=== PATIENT | female | born 1995 | race Caucasian/White ===

== ENCOUNTER 2017-06-11 16:29 | Emergency (ER) | payer BC ==
[~2017-06-11] VITALS: Ht 180.3 cm; Wt 74.0 kg
[2017-06-11 17:14] VITALS: BP 123/67; Ht 180.3 cm; Wt 74.0 kg
== END 2017-06-11 20:01 | disposition left against medical advice (07) ==
LOC: ED 16:29
DX: Z53.21 Procedure and treatment not carried out due to patient leaving prior to being seen by health care provider (principal)